=== PATIENT | male | born 1995 | race Caucasian/White ===

== ENCOUNTER 2025-05-04 10:16 | Emergency (ER) | payer OTHER ==
[~2025-05-04] VITALS: Ht 182.9 cm; Wt 81.7 kg
[2025-05-04 10:58] VITALS: BP 154/93
== END 2025-05-04 13:10 | disposition home or self-care (01) ==
LOC: ER 10:16
DX: S61.215A Laceration without foreign body of left ring finger without damage to nail, initial encounter (principal); S61.412A Laceration without foreign body of left hand, initial encounter; X58.XXXA Exposure to other specified factors, initial encounter
CPT/HCPCS: 12001; 90471; 90715; 99282-25